=== PATIENT | female | born 1945 | race Caucasian/White ===

== ENCOUNTER 2018-04-01 18:51 | Outpatient (REF) | payer MEDICARE, OTHER, SELFPAY ==
[2018-04-01 19:28] LABS: Anion Gap 8.8 mmol/L (3-11); BUN 19 mg/dL (7-18); CO2 29.2 mmol/L (21.0-32.0); CREATININE 0.79 mg/dL (0.55-1.02); Calcium 9.3 mg/dL (8.5-10.1); Chloride 104 mmol/L (98-107); Glucose 100 mg/dL (70-100); Potassium 4.2 mmol/L (3.5-5.1); Sodium 142 mmol/L (136-145); TSH 2.05 uIU/mL (0.358-3.74)
[2018-04-01 20:08] LABS: Cholesterol 250 mg/dL (50-200); HDL Cholesterol 102 mg/dL (40-60); LDL CHOLESTEROL 128 mg/dL (<100); Triglyceride 99 mg/dL (30-150)
== END 2018-04-01 19:11 ==
LOC: NCHCN 18:51
PROVIDERS: PCP Internal Medicine; Referring Provider Internal Medicine; Visit Provider Internal Medicine
DX: E78.5 Hyperlipidemia, unspecified (principal)
CPT/HCPCS: 80048; 80061; 83721; 84443

== ENCOUNTER 2021-10-21 08:22 | Outpatient (CLI) | payer MEDICARE, OTHER, SELFPAY ==
--- NOTE | 2021-10-21 08:15 | RT.EKG_ITS ---
APPROVED REPORT Exam: Resting ECG Reason for Exam: palpitations Patient Location: O HR:69 bpm ECG Measurements Heart Rate 69 AXIS NJ 167 P 36 QRSd 92 QRS -14 QT 418 T 5 QTc 448 Conclusion Sinus rhythm...normal P axis, V-rate 50- 99 Probable left atrial enlargement...P >50mS, <-0.10mV V1 Poor R wave progression
== END 2021-10-21 08:23 | disposition home or self-care (01) ==
LOC: DI.CARD 08:22
PROVIDERS: PCP Internal Medicine; Visit Provider Internal Medicine Cardiovascular Disease
DX: R00.2 Palpitations (principal)
CPT/HCPCS: 93010

== ENCOUNTER → 2021-10-21 08:38 | Outpatient (BNVA) | payer MEDICARE, OTHER, SELFPAY | PROVIDERS: PCP Internal Medicine; Referring Provider Internal Medicine; Visit Provider Internal Medicine Cardiovascular Disease | DX: R00.2 Palpitations (principal) | CPT/HCPCS: 93005; 99203 ==

== ENCOUNTER 2022-04-15 18:40 | Outpatient (REF) | payer MEDICARE, OTHER, SELFPAY ==
[2022-04-15 21:55] LABS: Anion Gap 10.1 mmol/L (3-11); BUN 21 mg/dL (7-18); CO2 23.9 mmol/L (21.0-32.0); CREATININE 0.8 mg/dL (0.55-1.02); Calcium 9.3 mg/dL (8.5-10.1); Calculated LDL 153 mg/dL (<100); Chloride 106 mmol/L (98-107); Cholesterol 272 mg/dL (<200); Estimated GFR 76.31 (mL/min/1.73m2); Glucose 84 mg/dL (74-106); HDL Cholesterol 102 mg/dL (40-60); Potassium 3.7 mmol/L (3.5-5.1); Sodium 140 mmol/L (136-145); TSH 1.41 uIU/mL (0.36-3.74); Triglyceride 85 mg/dL (<150)
== END 2022-04-15 18:41 | disposition home or self-care (01) ==
LOC: NCHCN 18:40
PROVIDERS: PCP Internal Medicine; Visit Provider Internal Medicine
DX: R03.0 Elevated blood-pressure reading, without diagnosis of hypertension (principal); Z13.89 Encounter for screening for other disorder; R00.2 Palpitations
CPT/HCPCS: 80048; 80061; 84443

== ENCOUNTER 2023-11-11 14:38 | Outpatient (REF) | payer MEDICARE, OTHER, SELFPAY ==
[2023-11-11 19:08] LABS: HCT 42.7 % (36.0-46.0); HGB 13.9 g/dL (11.2-15.7); MCH 29.8 pg (27.0-33.0); MCHC 32.6 % (32.0-36.0); MCV 91 fL (80-95); MPV 10.3 fL (8.0-11.0); Platelet Count 296 10^3/uL (130-400); RBC 4.67 10^6/uL (3.93-5.22); RDW 12.6 % (11.7-14.6); RDW-SD 42.1 fL; WBC 7.63 10^3/uL (4.4-10.8)
[2023-11-11 19:14] LABS: Anion Gap 6.8 mmol/L (3-11); BUN 16 mg/dL (7-18); CO2 29.2 mmol/L (21.0-32.0); CREATININE 0.8 mg/dL (0.55-1.02); Calcium 9.3 mg/dL (8.5-10.1); Chloride 105 mmol/L (98-107); Estimated GFR 75.84 (mL/min/1.73m2); Glucose 95 mg/dL (74-106); Potassium 3.8 mmol/L (3.5-5.1); Sodium 141 mmol/L (136-145)
[2023-11-11 19:15] LABS: C-Reactive Protein < 0.50 mg/dL (<or=0.5)
[2023-11-11 19:19] LABS: ESR < 1 mm/hr (0-30)
[2023-11-11 19:37] LABS: Vitamin D 25 Total 46.1 ng/mL (30-100)
[2023-11-12 17:30] LABS: Rheumatoid Factor <8.6 IU/mL (<12.0)
[2023-11-17 09:40] LABS: Cyclic Citrullinated Peptide <2.5 U/mL (<5.0)
== END 2023-11-11 14:39 | disposition home or self-care (01) ==
LOC: NCHCN 14:38
PROVIDERS: PCP Internal Medicine; Visit Provider Internal Medicine
DX: M81.0 Age-related osteoporosis without current pathological fracture (principal); M19.90 Unspecified osteoarthritis, unspecified site
CPT/HCPCS: 80048; 82306; 85027; 85652; 86200; 86140; 86431